=== PATIENT | male | born 1945 | race Caucasian/White ===

== ENCOUNTER 2017-04-24 11:09 | Inpatient (IN) | payer OTHER, MEDICARE ==
--- NOTE | ~2017-04-24 | DS ---
Discharge Summary [facility] [address] [facility] [place]. [address] NAME: OLY MONTALVO : 49 STATUS : DIS IN PAT#: [id number] AGE: 71 ADM/REG DATE : 04/24/17 MR#: [id number] REPORT SERV DATE: 05/04/17 DICTATED BY: AIDEN RAMOS DATE: 05/01/17 REPORT STATUS : Draft TRANSCRIBED BY: MODL DATE: 05/01/17 ADMISSION DATE: 04/24/2017 DISCHARGE DATE: 05/01/2017 REASON FOR ADMISSION: Seizure. The patient had a seizure earlier in the day of admission at home that was observed by the sister. DISCHARGE DIAGNOSES: 1. Methicillin-sensitive Staphylococcus aureus bacteremia of unclear etiology. 2. Left shoulder hemarthrosis. 3. Status post seizure likely secondary to hypoglycemia. 4. Morbid obesity with immobility. 5. Atrial fibrillation, status post rapid ventricular response. 6. Status post chest pain. 7. Diabetes type 2. 8. Systolic congestive heart failure with an ejection fraction of 35%. 9. Status post hypertension urgency. 10.Dyspnea. HOSPITAL COURSE: 1. Seizure. The patient on sulfonylureas at home for glucose control and was known to have low blood sugars from time to time. It is believed that he had a hypoglycemic event that likely triggered seizure that was witnessed. At any rate, the patient was started on Keppra here at the hospital and did not have any further seizure events. 2. Blood cultures have been done in the emergency room on admission. The patient had a normal white blood cell count, was afebrile. However, the patient had blood cultures drawn and would have 1/2 blood cultures come back positive for MSSA. It was noted that the patient had a red swollen left shoulder with quite limited range of motion when PT worked with the patient, so we had Dr. Doyle Calvillo was consulted and would see the patient. He aspirated fluid from the shoulder, which was just blood tinged and did not culture anything out from that fluid. The patient had urinalysis drawn, which would show no signs of infection. Chest x-ray, which showed no signs of pneumonia, and so Infectious Disease, Dr. Dewey would see the patient and no source of etiology of the MSSA bacteremia was identified. The patient was placed on IV Ancef and will need to stay on it through 05/09/2017 to complete two-week treatment for the bacteremia. 3. Morbid obesity with immobility. The patient has a BMI and weighs 423 pounds and is morbidly obese. He does not move around much at home and PT saw him and recommended [facility] rehab. 4. Atrial fibrillation with RVR. The patient was having quite high blood pressures while here at the hospital. Part of the reason for that has been that they have been using a cuff that is too small for his large arm, however, he has been having some legitimate high blood pressures on the evening of 04/29/2017. The patient developed atrial fibrillation with RVR. He was started on Cardizem drip. Apparently, the patient is on long-acting Cardizem at home and that was not continued here at the hospital. He was changed from Lopressor to carvedilol for better blood pressure control. We increased the dose to 12.5 mg p.o. b.i.d., and added back his home Cardizem and he has had no Discharge Summary [address] [address] NAME: OLY MONTALVO : 49 STATUS : DIS IN PAT#: [id number] AGE: 71 ADM/REG DATE : 04/24/17 MR#: [id number] REPORT SERV DATE: 05/04/17 DICTATED BY: AIDEN RAMOS DATE: 05/01/17 REPORT STATUS : Draft TRANSCRIBED BY: MARY DATE: 05/01/17 further issue with RVR. He has had good rate control. However, he has a CHADS2 score of 4 and he has had previous stroke, high blood pressure, and diabetes. We have been able to achieve better blood pressure control by adding hydralazine, increasing his Imdur dose, and increasing his Coreg dose. On last check today, his blood pressure was 128/89. 5. Chest pain. The patient did have a brief episode of chest pain while his blood pressure was reading 182/111 late evening on 04/29/2017, troponins were checked and were at his baseline at 0.12 which is what they were at when coming in without chest pain. EKG which show AFib with RVR, but no ST changes significant for ischemia and the patient would have no further chest pain after blood pressure control was achieved. 6. Diabetes type 2. We have placed the patient on metformin and replaced his sulfonylurea due to hypoglycemic events. He has good sugar control here at the hospital on metformin. 7. Dyspnea. The patient had dyspnea last night, was given a single dose of IV Lasix 40 mg x1, and had a chest x-ray, which showed to be clear and dyspnea has resolved this morning. DISCHARGE CONDITION: Stable. DISCHARGE MEDICATIONS: 1. Lipitor 80 mg p.o. daily. 2. Imdur 60 mg p.o. daily. 3. Diltiazem extended release 300 mg p.o. daily. 4. Synthroid 88 mcg p.o. daily. 5. Vitamin D3 1000 units p.o. daily. 6. Aspirin 81 mg p.o. daily. 7. Coreg 12.5 mg p.o. b.i.d. 8. Terazosin 2 mg p.o. q.h.s. 9. Losartan 100 mg p.o. daily. 10.Zoloft 100 mg p.o. daily. 11.Omeprazole 20 mg p.o. daily. 12.Potassium chloride 30 mEq p.o. b.i.d. 13.Eliquis 5 mg p.o. daily. 14.Hydralazine 50 mg p.o. q.6 hours. 15.Ancef 2 g IV q.8 hours through 05/09/2017. DISCHARGE PLAN: The patient will be discharged to [facility] facility for [facility]hab and follow up with his primary care at [facility] after conclusion of rehab. The patient will complete Ancef through 05/09/2017 and follow up with [facility]. DICTATED BY: ARNOLD Quijano/MARY Discharge Summary [address] [address] NAME: OLY MONTALVO : 49 STATUS : DIS IN PAT#: [id number] AGE: 71 ADM/REG DATE : 04/24/17 MR#: [id number] REPORT SERV DATE: 05/04/17 DICTATED BY: AIDEN RAMOS DATE: 05/01/17 REPORT STATUS : Draft TRANSCRIBED BY: MARY DATE: 05/01/17 Aiden Ramos APN / [id number] CC: Fina Reyes M.D. [facility]
--- NOTE | ~2017-04-24 | CN ---
Consultation Report [facility] [address] [facility] [place]. [address] NAME: OLY MONTALVO : 49 STATUS : ADM IN [facility]#: [id number] AGE: 71 ADM/REG DATE : 04/24/17 MR#: [id number] REPORT SERV DATE: 04/26/17 DICTATED BY: AUTUMN BUCHANAN DATE: 04/26/17 REPORT STATUS : Draft TRANSCRIBED BY: MODL DATE: 04/26/17 INFECTIOUS DISEASE CONSULT DATE OF CONSULTATION: REASON FOR EVALUATION: Treatment of Staph aureus bacteremia. HISTORY OF PRESENT ILLNESS: The patient is a 71-year-old male with diabetes mellitus, massive morbid obesity, seizure disorder. He suffered rather seizures in December and February leading to admissions at [place] and had been on medication, but had a witnessed seizure at home on the and was brought in where he had further seizing witnessed by the emergency room physician and that was stopped with benzodiazepines. He had no fever, no elevated white blood cell count. Blood cultures were done in the emergency room and now one of those has returned positive of two for Staph aureus. Sensitivities still to be determined. The patient has continued to be afebrile with a normal white count without signs or symptoms of infection. On no antibiotics. He had no symptoms suggestive of infection prior to the seizures such as fevers, chills, malaise, or flu-like symptoms. He has had no boils, skin or soft tissue infections, rashes, or any other potential source for Staph bacteremia recently, and no recent medical procedures. No hospitalizations since February. PAST MEDICAL HISTORY: Otherwise, unremarkable. MEDICATIONS: On no antimicrobials. ALLERGIES: NO KNOWN ANTIMICROBIAL ALLERGIES. SOCIAL HISTORY: He has been living at home though mobility severely compromised by size. He is single, nonsmoker. No history of alcohol or substance abuse. FAMILY HISTORY: Noncontributory. PHYSICAL EXAMINATION: GENERAL: A nontoxic, adult male, in no acute distress. Alert and oriented x3. VITAL SIGNS: Temperature has been normal throughout the hospital stay, 97.6 at present, with a pulse of 86, respirations 20, blood pressure 157/93. We have not been able to weigh the patient thus far. HEENT: Sclerae clear. No oral lesions. LUNGS: Clear. HEART: Sounds difficult to hear and not really able to assess adequately whether or not hear a murmur due to the patient's size. ABDOMEN: Soft, nontender. Positive bowel sounds. EXTREMITIES: Without clubbing, cyanosis. He has mild edema in the lower extremities with no signs of cellulitis. No foot infections. No skin or soft tissue lesions that look like a source of bacteremia. Consultation Report [place] [id number] [facility] [place] [address] NAME: OLY MONTALVO : 49 STATUS : ADM IN PAT#: [id number] AGE: 71 ADM/REG DATE : 04/24/17 MR#: [id number] REPORT SERV DATE: 04/26/17 DICTATED BY: AUTUMN BUCHANAN DATE: 04/26/17 REPORT STATUS : Draft TRANSCRIBED BY: MARY DATE: 04/26/17 LABORATORY DATA: White count 10.2 when he came in, 6.2 today, with hematocrit of 34.6, platelets 228. Unremarkable differential on the white blood cell count. BUN and creatinine 14 and 1.1. Liver function tests within normal limits. IMPRESSION: Positive blood culture, one of two for Staph that certainly could be a contaminant, but as always was Staph aureus, it is dangerous to assume that. RECOMMENDATIONS: 1. Agree with repeating the blood cultures. 2. Agree with covering with antibiotics in the form of vancomycin while we are waiting on those cultures. Changing potentially to Ancef if it is MSSA. 3. It is possible that if things are still unclear, we may need to simply treat him with 14 days of intravenous or equivalent intravenous antibiotics to be on the safe side. Finally, I will follow the patient with you. I appreciate very much your consulting on this patient. CHILANGO Autumn Buchanan M.D. / [id number] CC: Osiel Salmeron M.D.
--- NOTE | ~2017-04-24 | HP ---
History And Physical [place] [id number] [place]. [address] NAME: OLY MONTALVO : 49 STATUS : [facility] [id number] AGE: 71 ADM/REG DATE : 04/24/17 MR#: [id number] REPORT SERV DATE: 04/24/17 DICTATED BY: NIYA RUSH DATE: 04/24/17 REPORT STATUS : Draft TRANSCRIBED BY: MODL DATE: 04/24/17 DATE OF ADMISSION: 04/24/2017 REASON FOR ADMISSION: Seizures. HISTORY OF PRESENT ILLNESS: This is a 71-year-old morbidly obese white male, who was admitted to [facility] in December and then in February again with seizures. Workup is unknown there and records will be obtained. He had a seizure earlier today at home observed by sister, a seizure in the ambulance observed by EMS, and a seizure in the emergency room observed by Dr. Dorota Navas. She gave him IV Ativan. He is sleeping now and unable to give history. History was obtained from Dr. Navas and sister, who is at bedside. PAST MEDICAL HISTORY: He has history of seizures, but not medicated for this, [facility] HOME MEDICATIONS: As follows: Aspirin 325 p.o. daily, atorvastatin 80 mg p.o. daily, cholecalciferol with vitamin D3 of 1000 units p.o. every noon, Cartia XT 300 mg p.o. daily, Proscar 5 mg p.o. at bedtime, Glucotrol 10 mg with breakfast and supper, Imdur 30 mg three times a day, Synthroid 88 mcg p.o. daily, losartan 100 mg p.o. daily, Lopressor 100 mg p.o. b.i.d., Prilosec 20 mg before breakfast, Klor-Con 30 mEq p.o. b.i.d., Zoloft 100 mg at bedtime, and Flomax 0.4 mg p.o. daily. ALLERGIES: BEKA INHIBITORS. SOCIAL HISTORY: He lives at home with his mother and is bedridden since his last seizure episode at [place], bed to bedside commode. He does not smoke or drink. FAMILY HISTORY: His four siblings all of whom are alive and well. Longevity runs in the family with father being exception dying early age from probably heart disease. His mother is 89 and almost 90, in fairly good health now. REVIEW OF SYSTEMS: Not obtained for the patient. His sister says that he ate breakfast this morning prior to coming in. Apparently, he has some heart disease as well in the past. Sister took blood sugar as she found him with seizing and his blood sugar was 119. PHYSICAL EXAMINATION: VITAL SIGNS: Blood pressure 165/100 with a heart rate of 115, respiratory rate 18, afebrile. HEENT: Extraocular movements are intact. He appeared to be conjugate. He looks mostly to the left side. NECK: Without bruit or thyroid. No JVD. HEART: Irregularly irregular. ABDOMEN: Soft, obese, nontender. There is edema in the panniculus that extends down to his knees. EXTREMITIES: Have stasis changes anteriorly. Distal pulses are palpable with dorsalis History And Physical [address] [address] NAME: OLY MONTALVO : 49 STATUS : AD[facility]#: [id number] AGE: 71 ADM/REG DATE : 04/24/17 MR#: [id number] REPORT SERV DATE: 04/24/17 DICTATED BY: NIYA RUSH DATE: 04/24/17 REPORT STATUS : Draft TRANSCRIBED BY: MARY DATE: 04/24/17 pedis and posterior tibial. NEUROLOGIC: He does not have elicitable deep tendon reflexes. He is intermittently arousable. He cries out in response to sister's voice more than mine. He moves symmetrically mostly with the right side, but the left ankle and foot moves spontaneously as well. His left upper extremity is flaccid and he is not using it right now. SKIN: With stasis changes. LYMPHATICS: There is no adenopathy. LABORATORY DATA: The CMP shows sodium 137, potassium 4.1, creatinine 1.30, BUN 17, glucose 168. Albumin 2.7, globulin high at 5.9, total protein 8.6, and liver tests were normal. The CPK was 108. Troponin 0.9. Arterial blood gas showed a pH of 7.32 with a PaCO2 of 47, PaO2 of 70. His base excess was -2.7. The chest x-ray portable was done showing mild pulmonary edema pattern and mild cardiomegaly. His lactate level was 4.7, which is elevated, but after the seizure urinalysis showed specific gravity of 1.016, 7 wbc's, 4 rbc's per high-powered field, pH 5. The white count was 10.2, hemoglobin 11.2, hematocrit 35, MCV 88, platelet count 247,000. ASSESSMENT: 1. Seizure, previously untreated after being seen at [facility] in February and in December. We will try to get old discharge summaries to see workup. The patient is not able to be imaged here because of his body habitus and weight. 2. Super morbid obesity with a weight of 400 to 800 pounds. 3. Obstructive sleep apnea on CPAP according to sister. Therefore, I do not think hypoxemia may have been the problems last night, and he did eat breakfast and subsequently started acting strange within cephalopathy. 4. Obesity hypoventilation syndrome. PaCO2 slightly elevated at 47. 5. Metabolic acidosis likely secondary to the seizure. Also, respiratory acidosis secondary to the treatment of the seizure possibly. 6. Diabetes type 2. Possibly hypoglycemia 119 with the acting funny report by his mother and encephalopathy tends against this. 7. Atrial fibrillation. Whether this is new or old, we will check the discharge summaries to see. PLAN: Sister says he is not to be resuscitated in the event of a natural . After discussion with her, this will be again enforced and we will treat with Keppra 1 g b.i.d., he got a gram IV in the emergency room already. He does have an encephalopathy with a postictal state perhaps some baseline encephalopathy, but he is doing well this morning. We will see if this wears off. I am going to admit the Zosyn and the labetalol that he was going to get from the emergency room because blood pressure is more reasonably controlled now and he does not appear to be infected. No fever. No elevated white count at this point. DB/MODL Niya History And Physical [address] [place]. [address] NAME: OLY MONTALVO : 49 STATUS : ADM [facility]#: [id number] AGE: 71 ADM/REG DATE : 04/24/17 MR#: [id number] REPORT SERV DATE: 04/24/17 DICTATED BY: NIYA RUSH DATE: 04/24/17 REPORT STATUS : Draft TRANSCRIBED BY: LEOLAL DATE: 04/24/17 Fina Rush / [id number] CC: Omar Reis DO
[2017-04-24 11:05] LABS: BASOPHILS 0.2 %; BASOPHILS ABSOLUTE 0.02 10/3/uL (0.0-0.16); EOSINOPHILS 0.8 %; EOSINOPHILS ABSOLUTE 0.08 10/3/uL (0.0-0.53); ER CBC TAT 0 Hrs 08 Mins; IMMATURE GRANULOCYTES 0.2 %; IMMATURE GRANULOCYTES ABSOLUTE 0.02 10/3/uL (0.0-0.11); LYMPHOCYTES 22.6 %; LYMPHOCYTES ABSOLUTE 2.31 10/3/uL (0.67-4.30); MEAN CORPUS HGB CONC 31.6 g/dL (32.0-36.0); MEAN CORPUSCULAR HEMOGLOB 27.9 pg (26.0-34.0); MEAN CORPUSCULAR VOLUME 88.1 fL (80-100); MEAN PLATELET VOLUME 8.5 fL (9.2-13.0); MONOCYTES 6.6 %; MONOCYTES ABSOLUTE 0.68 10/3/uL (0.21-1.20); NEUTROPHILS 69.6 %; NEUTROPHILS ABSOLUTE 7.13 10/3/uL (2.02-8.40); RED CELL COUNT 4.02 10/6/uL (4.7-6.1); WHITE BLOOD CELLS 10.2 10/3/uL (4.5-10.5)
[2017-04-24 11:06] LABS: HEMATOCRIT 35.4 % (40.0-51.0); HEMOGLOBIN 11.2 g/dL (13.6-17.8); MANUAL DIFF NO %; PLATELET COUNT 247 10/3/uL (150-400)
[2017-04-24 11:07] LABS: ASCORBIC ACID (UR NOT ORDER) NEG (NEG); BILIRUBIN, URINE NEGATIVE (NEG); ER URINALYSIS TAT 0 Hrs 10 Mins; KETONE, URINE NEGATIVE (NEG); LEUKOCYTE ESTERASE(NOT OR NEG (NEG); NITRITE (URINE) NEG (NEG); WBC (NOT ORDERED) (RFLEX) 7 (0-5)
[~2017-04-24 11:09] MED LIST: ASA5GR PO; ASAB PO; CARDCD300 PO; COZAAR100 MG PO; FLOMAX4 PO; GLUCOTRO10 PO; IMDUR120 PO; KLOR-CON M2020 MEQ PO; L80 PO; LEVOTHYROXIN88 MCG PO; LIPITOR10 PO; LIPITOR80 MG PO; LOP100 PO; PLAVIX PO; PRILO PO; VITAMIN D31000 UNIT PO; ZOL100 PO
[2017-04-24 11:23] LABS: BUN (BLOOD UREA NITROGEN) 17 MG/DL (6-23); CALCIUM, SERUM 8.9 MG/DL (8.5-10.4); CHLORIDE, SERUM 102 MMOL/L (96-112); GFR AFRICAN AMERICAN 65 ML/MIN (>=60); GFR NON AFRICAN AMERICAN 56 ML/MIN (>=60); SGOT(AST) 20 U/L (5-40); SGPT(ALT) 24 U/L (5-65); SODIUM, SERUM 137 MMOL/L (135-148); TOTAL BILIRUBIN 0.6 MG/DL (0-1.2); TOTAL PROTEIN 8.6 G/DL (6.0-8.5)
[2017-04-24 11:24] LABS: A/G RATIO 0.5 (0.7-1.9); ALBUMIN 2.7 G/DL (3.5-5.0); ALKALINE PHOSPHATASE 58 U/L (45-117); CO2 (CARBON DIOXIDE) 25 MMOL/L (24-34); GLOBULIN 5.9 G/DL (2.5-4.1); GLUCOSE, SERUM 168 MG/DL (60-99); POTASSIUM, SERUM 4.1 MMOL/L (3.5-5.3)
[2017-04-24 11:26] LABS: TROPONIN I 0.09 NG/ML (<0.05)
[2017-04-24 11:31] LABS: LACTATE 4.7 MMOL/L (0.3-2.4)
[2017-04-24] MEDS ORDERED: LIPITOR80 MG PO (12:14)
[2017-04-24] MEDS ORDERED: GLUCOTRO10 PO (12:15)
[2017-04-24] MEDS ORDERED: PROSCAR5 PO (12:16)
[2017-04-24] MEDS ORDERED: IMDUR30 PO (12:16)
[2017-04-24] MEDS ORDERED: SYN88 PO (12:17)
[2017-04-24] MEDS ORDERED: VITAMIN D31000 UNIT PO (12:17)
[2017-04-24] MEDS ORDERED: ASAEC PO (12:17)
[2017-04-24] MEDS ORDERED: CARTIA XT300 MG/24 PO (12:17)
[2017-04-24] MEDS ORDERED: FLOMAX4 PO (12:18)
[2017-04-24] MEDS ORDERED: LOP100 PO (12:18)
[2017-04-24] MEDS ORDERED: COZAAR100 MG PO (12:18)
[2017-04-24] MEDS ORDERED: ZOL100 PO (12:19)
[2017-04-24] MEDS ORDERED: PRILO PO (12:20)
[2017-04-24] MEDS ORDERED: KLOR-CON M2020 MEQ PO (12:23)
[2017-04-24 12:31] LABS: ALLENS TEST Pos; BE (BASE EXCESS) -2.7 MEQ/L (0 +/- 2.5); CARBOXYHEMOGLOBIN 1.3 % (0-3); DEVICE NRB; HCO3 (ACTUAL BICARBONATE) 23.6 MEQ/L (23-27); HEMOBLOGIN CONTENT 11.6 G/DL (14-18); INSTRUMENT SERIAL # 8087; METHEMOGLOBIN 0.4 % (0-3); O2 CONTENT 16.7 VOL% (18-24); OPERATOR ID 35188; PCO2 (CO2 TENSION) 47 MMHG (35-45); PO2 (O2 TENSION) 270 MMHG (79-93); SAMPLE Arterial; pH 7.32 (7.37-7.43)
[2017-04-24 13:21] LABS: CPK 108 U/L (0-200)
[2017-04-25 05:10] LABS: BASOPHILS 0.3 %; BASOPHILS ABSOLUTE 0.02 10/3/uL (0.0-0.16); EOSINOPHILS 1.5 %; EOSINOPHILS ABSOLUTE 0.11 10/3/uL (0.0-0.53); HEMOGLOBIN 9.8 g/dL (13.6-17.8); IMMATURE GRANULOCYTES 0.1 %; IMMATURE GRANULOCYTES ABSOLUTE 0.01 10/3/uL (0.0-0.11); LYMPHOCYTES 27.3 %; LYMPHOCYTES ABSOLUTE 2.05 10/3/uL (0.67-4.30); MEAN CORPUS HGB CONC 30.8 g/dL (32.0-36.0); MEAN CORPUSCULAR HEMOGLOB 27.2 pg (26.0-34.0); MEAN CORPUSCULAR VOLUME 88.3 fL (80-100); MEAN PLATELET VOLUME 8.3 fL (9.2-13.0); MONOCYTES 8.1 %; MONOCYTES ABSOLUTE 0.61 10/3/uL (0.21-1.20); NEUTROPHILS 62.7 %; PLATELET COUNT 230 10/3/uL (150-400); RBC DISTRIBUTION WIDTH 17.7 % (12.0-16.0); WHITE BLOOD CELLS 7.5 10/3/uL (4.5-10.5)
[2017-04-25 05:13] LABS: HEMATOCRIT 31.8 % (40.0-51.0); MANUAL DIFF NO %
[2017-04-25 05:18] LABS: A/G RATIO 0.4 (0.7-1.9); ALBUMIN 2.2 G/DL (3.5-5.0); ALKALINE PHOSPHATASE 42 U/L (45-117); BUN (BLOOD UREA NITROGEN) 15 MG/DL (6-23); CALCIUM, SERUM 8.5 MG/DL (8.5-10.4); CHLORIDE, SERUM 108 MMOL/L (96-112); CO2 (CARBON DIOXIDE) 25 MMOL/L (24-34); CPK 95 U/L (0-200); CREATININE 1.04 MG/DL (0.70-1.30); GFR AFRICAN AMERICAN 85 ML/MIN (>=60); GFR NON AFRICAN AMERICAN 73 ML/MIN (>=60); GLUCOSE, SERUM 66 MG/DL (60-99); POTASSIUM, SERUM 3.5 MMOL/L (3.5-5.3); SGOT(AST) 18 U/L (5-40); SGPT(ALT) 20 U/L (5-65); SODIUM, SERUM 139 MMOL/L (135-148); TOTAL BILIRUBIN 0.5 MG/DL (0-1.2); TOTAL PROTEIN 7.2 G/DL (6.0-8.5)
[2017-04-26 06:15] LABS: BASOPHILS 0.3 %; BASOPHILS ABSOLUTE 0.02 10/3/uL (0.0-0.16); EOSINOPHILS 1.9 %; EOSINOPHILS ABSOLUTE 0.12 10/3/uL (0.0-0.53); HEMATOCRIT 34.6 % (40.0-51.0); HEMOGLOBIN 10.7 g/dL (13.6-17.8); IMMATURE GRANULOCYTES 0.2 %; IMMATURE GRANULOCYTES ABSOLUTE 0.01 10/3/uL (0.0-0.11); LYMPHOCYTES 22.8 %; LYMPHOCYTES ABSOLUTE 1.42 10/3/uL (0.67-4.30); MEAN CORPUS HGB CONC 30.9 g/dL (32.0-36.0); MEAN CORPUSCULAR HEMOGLOB 27.6 pg (26.0-34.0); MEAN CORPUSCULAR VOLUME 89.4 fL (80-100); MEAN PLATELET VOLUME 8.7 fL (9.2-13.0); MONOCYTES 7.9 %; MONOCYTES ABSOLUTE 0.49 10/3/uL (0.21-1.20); NEUTROPHILS 66.9 %; NEUTROPHILS ABSOLUTE 4.16 10/3/uL (2.02-8.40); PLATELET COUNT 228 10/3/uL (150-400); RBC DISTRIBUTION WIDTH 17.8 % (12.0-16.0); RED CELL COUNT 3.87 10/6/uL (4.7-6.1); WHITE BLOOD CELLS 6.2 10/3/uL (4.5-10.5)
[2017-04-26 06:16] LABS: MANUAL DIFF NO %
[2017-04-26 06:19] LABS: BUN (BLOOD UREA NITROGEN) 14 MG/DL (6-23); CALCIUM, SERUM 8.7 MG/DL (8.5-10.4); CHLORIDE, SERUM 105 MMOL/L (96-112); CO2 (CARBON DIOXIDE) 23 MMOL/L (24-34); GFR AFRICAN AMERICAN 79 ML/MIN (>=60); GFR NON AFRICAN AMERICAN 68 ML/MIN (>=60); POTASSIUM, SERUM 3.8 MMOL/L (3.5-5.3); SODIUM, SERUM 137 MMOL/L (135-148)
[2017-04-26 06:20] LABS: GLUCOSE, SERUM 118 MG/DL (60-99)
[2017-04-26 17:19] LABS: PROCALCITONIN 0.07 ng/mL (<0.5)
[2017-04-27 21:37] LABS: BD FL SOURCE (NOT ORD) RIGHT SHOULDER ASPIR
[2017-04-29 06:14] LABS: BASOPHILS 0.3 %; BASOPHILS ABSOLUTE 0.02 10/3/uL (0.0-0.16); EOSINOPHILS 2.7 %; EOSINOPHILS ABSOLUTE 0.16 10/3/uL (0.0-0.53); HEMATOCRIT 33.9 % (40.0-51.0); HEMOGLOBIN 10.4 g/dL (13.6-17.8); IMMATURE GRANULOCYTES 0.3 %; IMMATURE GRANULOCYTES ABSOLUTE 0.02 10/3/uL (0.0-0.11); LYMPHOCYTES 28.6 %; LYMPHOCYTES ABSOLUTE 1.71 10/3/uL (0.67-4.30); MANUAL DIFF NO %; MEAN CORPUS HGB CONC 30.7 g/dL (32.0-36.0); MEAN CORPUSCULAR HEMOGLOB 26.9 pg (26.0-34.0); MEAN CORPUSCULAR VOLUME 87.8 fL (80-100); MEAN PLATELET VOLUME 8.5 fL (9.2-13.0); MONOCYTES 7.4 %; MONOCYTES ABSOLUTE 0.44 10/3/uL (0.21-1.20); NEUTROPHILS 60.7 %; NEUTROPHILS ABSOLUTE 3.63 10/3/uL (2.02-8.40); PLATELET COUNT 222 10/3/uL (150-400); RBC DISTRIBUTION WIDTH 18.3 % (12.0-16.0); RED CELL COUNT 3.86 10/6/uL (4.7-6.1)
[2017-04-29 06:35] LABS: BUN (BLOOD UREA NITROGEN) 15 MG/DL (6-23); CALCIUM, SERUM 8.7 MG/DL (8.5-10.4); CHLORIDE, SERUM 106 MMOL/L (96-112); CO2 (CARBON DIOXIDE) 27 MMOL/L (24-34); CREATININE 1.29 MG/DL (0.70-1.30); GFR AFRICAN AMERICAN 65 ML/MIN (>=60); GFR NON AFRICAN AMERICAN 56 ML/MIN (>=60); GLUCOSE, SERUM 123 MG/DL (60-99); POTASSIUM, SERUM 3.9 MMOL/L (3.5-5.3); SODIUM, SERUM 139 MMOL/L (135-148)
[2017-04-29 19:26] LABS: TROPONIN I 0.12 NG/ML (<0.05)
[2017-04-30 01:49] LABS: BUN (BLOOD UREA NITROGEN) 14 MG/DL (6-23); CALCIUM, SERUM 8.8 MG/DL (8.5-10.4); CHLORIDE, SERUM 106 MMOL/L (96-112); CO2 (CARBON DIOXIDE) 28 MMOL/L (24-34); CREATININE 1.08 MG/DL (0.70-1.30); GFR AFRICAN AMERICAN 81 ML/MIN (>=60); GFR NON AFRICAN AMERICAN 70 ML/MIN (>=60); GLUCOSE, SERUM 130 MG/DL (60-99); POTASSIUM, SERUM 3.8 MMOL/L (3.5-5.3); SODIUM, SERUM 141 MMOL/L (135-148); TROPONIN I 0.12 NG/ML (<0.05)
== END 2017-05-01 18:20 | DRG 638 ==
LOC: ER 11:09 → 6NO 17:22
PROVIDERS: Emergency Medicine; Internal Medicine; Nurse Practitioner Gerontology; Specialist
PROC: 0R9K3ZX Drainage of Left Shoulder Joint, Percutaneous Approach, Diagnostic (ICD-10-PCS; principal; 2017-04-27)
DX: E11.649 Type 2 diabetes mellitus with hypoglycemia without coma (principal); E87.2 Acidosis; R56.9 Unspecified convulsions; I50.22 Chronic systolic (congestive) heart failure; R78.81 Bacteremia; R53.2 Functional quadriplegia; M25.012 Hemarthrosis, left shoulder; I48.91 Unspecified atrial fibrillation; I10 Essential (primary) hypertension; E66.2 Morbid (severe) obesity with alveolar hypoventilation; M75.102 Unspecified rotator cuff tear or rupture of left shoulder, not specified as traumatic; B95.61 Methicillin susceptible Staphylococcus aureus infection as the cause of diseases classified elsewhere; Z66 Do not resuscitate; Z79.82 Long term (current) use of aspirin; Z79.84 Long term (current) use of oral hypoglycemic drugs
CPT/HCPCS: 36569; 36600; 71010; 73030-LT; 80048; 80053; 81001; 82330; 82550; 82803; 82805; 82947; 82962; 83605; 84132; 84145; 84295; 84443; 84484; 85014; 85025; 85652; 87040; 87070; 87077; 87150; 87186; 87205; 89051; 93005; 93971; 94640; 94660; 96374; 96375; 97162-GP; 97530-GP; 99285; A9270-GY; C1751; C8929; G8978-CM-GP; G8979-CL-GP; J0360; J0690; J1953; J3370; Q9957